=== PATIENT | male | born 1945 | race Caucasian/White ===

== ENCOUNTER 2017-05-31 09:22 | Inpatient (IN) | payer OTHER ==
[~2017-05-31] VITALS: Ht 177.8 cm; Wt 122.2 kg
[2017-05-31] MEDS ORDERED: LABETALOL 5MG/ML, 20ML ONE (09:53)
[2017-05-31] MEDS ORDERED: SODIUM CHLORIDE FLUSH 10ML SYR IVF ONE (10:00)
[2017-05-31] MEDS ORDERED: SODIUM CHLORIDE 0.9% 1,000ML IVBOLUS ONE (10:00)
[2017-05-31] MEDS ORDERED: LABETALOL 5MG/ML, 20ML IVPush ONE (10:00)
[2017-05-31 10:07] LABS: HEMATOCRIT 45.2 % (39.2-51.8); HEMOGLOBIN 15.6 g/dL (13.7-18.0); WHITE BLOOD COUNT 6.5 x10^3/uL (3.4-10)
[2017-05-31 10:21] LABS: ASPARTATE AMINO TRANSFERASE 23 U/L (15-37); BLOOD UREA NITROGEN 20 mg/dL (7-18)
[2017-05-31 10:30] LABS: IS PT STATUS REG ER OR PRE ER? YES
[2017-05-31] MEDS ORDERED: SODIUM CHLORIDE FLUSH 10ML SYR IVF PRN (11:30)
[2017-05-31] MEDS ORDERED: PROMETHAZINE 25 MG/ML, 1ML IM PRN (13:00)
[2017-05-31] MEDS ORDERED: NITROGLYCERIN 0.4 MG/SPRAY SL PRN (13:00)
[2017-05-31] MEDS ORDERED: LABETALOL 5MG/ML, 20ML IVPush PRN (13:00)
[2017-05-31] MEDS ORDERED: ACETAMINOPHEN 325 MG TABLET PO PRN (13:00)
[2017-05-31] MEDS ORDERED: NITROGLYCERIN 0.4 MG BOTTLE (25 TABS) SL PRN (13:00)
[2017-05-31] MEDS ORDERED: morphine SULFATE 10 MG/ML, 1ML IVPush PRN (13:00)
[2017-05-31] MEDS ORDERED: ONDANSETRON 2MG/ML, 2ML IVPush PRN (13:00)
[2017-05-31] MEDS ORDERED: METOCLOPRAMIDE 5 MG/ML, 2ML IVPush PRN (13:00)
[2017-05-31 13:11] LABS: IS PT STATUS REG ER OR PRE ER? NO
[2017-05-31 13:19] VITALS: BP 168/99
[2017-05-31] MEDS: ENOXAPARIN 40 MG/0.4 ML SQ SCH (16:02)
[2017-05-31] MEDS ORDERED: PNEUMOCOCCAL 23 VACCINE IM-VACC ONE (16:30)
[2017-05-31] MEDS: METOPROLOL TARTRATE 25 MG TABLET PO SCH (18:47)
[2017-05-31 18:48] LABS: IS PT STATUS REG ER OR PRE ER? NO
[2017-05-31 19:07] VITALS: BP 152/71
[2017-05-31] MEDS: ATORVASTATIN 40 MG TABLET PO SCH (21:35)
[2017-06-01 01:21] VITALS: BP 134/69
[2017-06-01 01:23] LABS: IS PT STATUS REG ER OR PRE ER? NO
[2017-06-01 05:41] LABS: HEMATOCRIT 41.4 % (39.2-51.8); HEMOGLOBIN 14.2 g/dL (13.7-18.0); WHITE BLOOD COUNT 6.6 x10^3/uL (3.4-10)
[2017-06-01] MEDS: METOPROLOL TARTRATE 25 MG TABLET PO SCH ×2 (06:36→17:49)
[2017-06-01] MEDS: ASPIRIN 81 MG TABLET EC PO SCH (06:36)
[2017-06-01 06:42] LABS: ASPARTATE AMINO TRANSFERASE 20 U/L (15-37); BLOOD UREA NITROGEN 25 mg/dL (7-18)
[2017-06-01] MEDS ORDERED: ASPIRIN 325 MG TABLET PO SCH (09:00)
[2017-06-01 10:02] VITALS: BP 135/71
[2017-06-01] MEDS ORDERED: REGADENOSON 0.4 MG/5 ML SYRINGE ONE (10:44)
[2017-06-01 13:06] VITALS: BP 173/74
[2017-06-01] MEDS: LISINOPRIL 10 MG TABLET PO SCH (13:11)
[2017-06-01] MEDS: ENOXAPARIN 40 MG/0.4 ML SQ SCH (13:12)
[2017-06-01 15:05] VITALS: BP_SYST 158; BP_DIAS 80; BP_DIAS 90
[2017-06-01] MEDS: ATORVASTATIN 40 MG TABLET PO SCH (20:10)
[2017-06-01 20:35] VITALS: BP 153/74
[2017-06-02 02:45] VITALS: BP 141/75
[2017-06-02] MEDS: ASPIRIN 81 MG TABLET EC PO SCH (06:28)
[2017-06-02] MEDS: METOPROLOL TARTRATE 25 MG TABLET PO SCH (06:29)
[2017-06-02 08:19] VITALS: BP 144/73
[2017-06-02] MEDS: LISINOPRIL 10 MG TABLET PO SCH (08:21)
[2017-06-02] MEDS: ENOXAPARIN 40 MG/0.4 ML SQ SCH (13:00)
[2017-06-02] MEDS ORDERED: ASPI-621 PO (14:55)
[2017-06-02] MEDS ORDERED: ATOR40TA78 PO (14:55)
[2017-06-02] MEDS ORDERED: NITR0.4T SL (14:55)
[2017-06-02] MEDS ORDERED: LISI-167 PO (14:55)
[2017-06-02] MEDS ORDERED: CARV6.2512 PO (14:55)
[2017-06-02] MEDS ORDERED: CARVEDILOL 6.25 MG TABLET PO SCH (18:00)
== END 2017-06-02 16:46 | disposition home or self-care (01) | DRG 293 ==
LOC: ED 10:16 → EDIP 11:21 → 5SO 12:54 → DCLOUNGE 06-02 16:20
PROVIDERS: ADMIT Internal Medicine; ATTEND Internal Medicine
DX: I11.0 Hypertensive heart disease with heart failure (principal); I34.0 Nonrheumatic mitral (valve) insufficiency; I44.7 Left bundle-branch block, unspecified; E78.5 Hyperlipidemia, unspecified; I16.0 Hypertensive urgency; I50.32 Chronic diastolic (congestive) heart failure; I25.110 Atherosclerotic heart disease of native coronary artery with unstable angina pectoris; E66.9 Obesity, unspecified; Z68.38 Body mass index [BMI] 38.0-38.9, adult; I25.2 Old myocardial infarction; Z79.82 Long term (current) use of aspirin; Z79.899 Other long term (current) drug therapy; Z87.891 Personal history of nicotine dependence; Z91.14 Patient's other noncompliance with medication regimen; Z91.19 Patient's noncompliance with other medical treatment and regimen; Z95.5 Presence of coronary angioplasty implant and graft; R73.9 Hyperglycemia, unspecified
CPT/HCPCS: 36415; 71010; 78452; 80053; 80061; 83690; 84443; 84484; 85025; 85610; 85730; 90732; 93005; 93017; 93306; J1650; J2785; A9502; C9898; J7030

== ENCOUNTER 2018-03-02 14:24 | Inpatient (IN) | payer OTHER ==
[~2018-03-02] VITALS: Ht 175.3 cm; Wt 117.0 kg
[~2018-03-02 14:24] MED LIST: ASPI-621 PO; ATOR40TA78 PO; CARV6.2512 PO; LISI-167 PO; NITR0.4T SL
[2018-03-02] MEDS ORDERED: ASPIRIN 81 MG TABLET CHEW ONE (15:00)
[2018-03-02 15:26] LABS: MEAN CORPUSCULAR HEMOGLOBIN 30.9 pg (27.5-34.5); MEAN CORPUSCULAR HGB CONC 34.4 g/dL (33.2-36.2); MEAN CORPUSCULAR VOLUME 89.8 fL (81-97); MEAN PLATELET VOLUME 7.5 fL (7.4-10.4); PLATELET COUNT 221 x10^3/uL (130-400); RED BLOOD COUNT 4.61 x10^6/uL (4.38-5.82); RED CELL DISTRIBUTION WIDTH 14.1 % (9.4-14.8)
[2018-03-02 15:30] LABS: INTERNATIONAL NORMALIZED RATIO 0.98 (0.93-1.1); PROTHROMBIN TIME 10.1 Seconds (9.6-11.5)
[2018-03-02] MEDS ORDERED: SODIUM CHLORIDE FLUSH 10ML SYR IVF ONE (15:30)
[2018-03-02] MEDS ORDERED: ASPIRIN 81 MG TABLET CHEW PO ONE (15:30)
[2018-03-02 15:32] LABS: ALANINE AMINOTRANSFERASE 33 U/L (12-78); ALBUMIN 3.9 g/dL (3.4-5.0); ANION GAP 5 mmol/L (5-15); CHLORIDE 107 mmol/L (98-107); CREATININE 1.75 mg/dL (0.7-1.3)
[2018-03-02 15:35] LABS: ALKALINE PHOSPHATASE 80 U/L (45-117); BILIRUBIN,TOTAL 0.6 mg/dL (0.2-1.0); TOTAL PROTEIN 7.5 g/dL (6.4-8.2); TROPONIN I < 0.015 ng/mL (0.000-0.045)
[2018-03-02 15:45] LABS: MD NO
[2018-03-02 15:53] LABS: BASOPHILS # (AUTO) 0.01 x10^3/uL (0-0.1); BASOPHILS % (AUTO) 0 % (0-1); EOSINOPHILS # (AUTO) 0.23 x10^3/uL (0-0.4); EOSINOPHILS % (AUTO) 4 % (1-7); LYMPHOCYTES # (AUTO) 1.16 x10^3/uL (1-3.4); LYMPHOCYTES % (AUTO) 18 % (22-44); MONOCYTES # (AUTO) 0.77 x10^3/uL (0.2-0.8); MONOCYTES % (AUTO) 12 % (2-9); NEUTROPHILS # (AUTO) 4.29 x10^3/uL (1.8-6.8); NEUTROPHILS % (AUTO) 66 % (42-75)
[2018-03-02] MEDS ORDERED: VERAPAMIL 2.5 MG/ML, 2ML ONE (16:09)
[2018-03-02] MEDS ORDERED: FENTANYL PF 100 MCG/2ML ONE (16:09)
[2018-03-02] MEDS ORDERED: MIDAZOLAM 1 MG/ML, 5ML ONE (16:09)
[2018-03-02] MEDS ORDERED: TICAGRELOR 90 MG TABLET ONE (16:09)
[2018-03-02] MEDS ORDERED: HEPARIN 1,000 UNITS/ML, 10ML ONE (16:10)
[2018-03-02] MEDS ORDERED: LIDOCAINE-MPF 2% ,5ML ONE (16:10)
[2018-03-02] MEDS ORDERED: BIVALIRUDIN 250 MG ONE (16:10)
[2018-03-02] MEDS ORDERED: NITROGLYCERIN 0.4 MG/SPRAY SL PRN (17:00)
[2018-03-02] MEDS ORDERED: ONDANSETRON ODT 4 MG PO PRN (17:00)
[2018-03-02] MEDS ORDERED: ACETAMINOPHEN 325 MG TABLET PO PRN (17:00)
[2018-03-02] MEDS ORDERED: DOCUSATE 100 MG CAPSULE PO PRN (17:00)
[2018-03-02] MEDS ORDERED: NITROGLYCERIN 0.4 MG BOTTLE (25 TABS) SL PRN ×2 (17:00→17:30)
[2018-03-02] MEDS ORDERED: ONDANSETRON 2MG/ML, 2ML IVPush PRN (17:00)
[2018-03-02] MEDS ORDERED: morphine SULFATE 10 MG/ML, 1ML IVPush PRN (17:00)
[2018-03-02] MEDS ORDERED: PHARMACY MAY ADJ FOR RENAL FX MC PRN (17:00)
[2018-03-02] MEDS: SODIUM CHLORIDE 0.9% 1,000 ML IV SCH ×2 (17:20→17:49)
[2018-03-02] MEDS: HEPARIN 5,000 UNITS/ML, 1ML SQ SCH (17:51)
[2018-03-02] MEDS: CARVEDILOL 6.25 MG TABLET PO SCH (17:51)
[2018-03-02 19:30] VITALS: BP 205/76
[2018-03-02] MEDS: LISINOPRIL 20 MG TABLET PO SCH (20:18)
[2018-03-02] MEDS ORDERED: ATORVASTATIN 40 MG TABLET PO SCH (21:00)
[2018-03-02 21:50] LABS: HEMOGLOBIN A1C 6.1 % (4.2-6.3)
[2018-03-03 00:29] VITALS: BP 172/75
[2018-03-03] MEDS: SODIUM CHLORIDE 0.9% 1,000 ML IV SCH ×2 (01:08→07:45)
[2018-03-03] MEDS: HEPARIN 5,000 UNITS/ML, 1ML SQ SCH (05:27)
[2018-03-03] MEDS: CARVEDILOL 6.25 MG TABLET PO SCH (05:27)
[2018-03-03 05:37] LABS: BASOPHILS # (AUTO) 0.02 x10^3/uL (0-0.1); BASOPHILS % (AUTO) 0 % (0-1); EOSINOPHILS # (AUTO) 0.19 x10^3/uL (0-0.4); EOSINOPHILS % (AUTO) 3 % (1-7); LYMPHOCYTES # (AUTO) 1.23 x10^3/uL (1-3.4); LYMPHOCYTES % (AUTO) 21 % (22-44); MD NO; MEAN CORPUSCULAR HEMOGLOBIN 30.4 pg (27.5-34.5); MEAN CORPUSCULAR HGB CONC 33.8 g/dL (33.2-36.2); MEAN CORPUSCULAR VOLUME 89.9 fL (81-97); MEAN PLATELET VOLUME 7.6 fL (7.4-10.4); MONOCYTES # (AUTO) 0.62 x10^3/uL (0.2-0.8); MONOCYTES % (AUTO) 10 % (2-9); NEUTROPHILS # (AUTO) 3.87 x10^3/uL (1.8-6.8); NEUTROPHILS % (AUTO) 65 % (42-75); PLATELET COUNT 165 x10^3/uL (130-400); RED BLOOD COUNT 4.35 x10^6/uL (4.38-5.82); RED CELL DISTRIBUTION WIDTH 13.7 % (9.4-14.8)
[2018-03-03 05:41] LABS: ALBUMIN 3.4 g/dL (3.4-5.0); ANION GAP 6 mmol/L (5-15); CALCIUM 8.9 mg/dL (8.5-10.1); CHLORIDE 111 mmol/L (98-107)
[2018-03-03 05:45] LABS: CHOL/HDL RATIO 4.8; CHOLESTEROL, TOTAL 125 mg/dL (140-239); CREATININE 1.59 mg/dL (0.7-1.3); HDL CHOL % 21 % (26-37); HDL CHOLESTEROL (DIRECT) 26 mg/dL (40-60); LDL CHOLESTEROL,CALCULATED 54 mg/dL (54-169); LDL/HDL RATIO 2.1 (0.5-3.0); TRIGLYCERIDES 227 mg/dL (50-200); VLDL CHOLESTEROL 45 mg/dL (0-25)
[2018-03-03 05:45] LABS: MICROSCOPIC NOT IND
[2018-03-03 05:47] LABS: CULTURE INDICATED? NO
[2018-03-03] MEDS ORDERED: ASPIRIN 81 MG TABLET EC PO SCH (06:00)
[2018-03-03 07:10] VITALS: BP 126/68
[2018-03-03] MEDS: LISINOPRIL 20 MG TABLET PO SCH (07:46)
[2018-03-03] MEDS ORDERED: LISINOPRIL 10 MG TABLET PO SCH (09:00)
[2018-03-03] MEDS ORDERED: CLOPIDOGREL 75 MG TABLET PO SCH (09:00)
[2018-03-03] MEDS ORDERED: CLOP75TA PO (09:02)
[2018-03-03] MEDS ORDERED: LISI-170 PO (09:02)
[2018-03-03 13:00] VITALS: BP 129/66
== END 2018-03-03 14:04 | disposition home or self-care (01) | DRG 246 ==
LOC: ED 15:59 → EDIP 16:47 → 5SO 17:08
PROVIDERS: ADMIT Hospitalist; ATTEND Hospitalist
PROC: 027034Z Dilation of Coronary Artery, One Artery with Drug-eluting Intraluminal Device, Percutaneous Approach (ICD-10-PCS; principal; 2018-03-02)
PROC: 4A023N7 Measurement of Cardiac Sampling and Pressure, Left Heart, Percutaneous Approach (ICD-10-PCS; 2018-03-02)
PROC: B2111ZZ Fluoroscopy of Multiple Coronary Arteries using Low Osmolar Contrast (ICD-10-PCS; 2018-03-02)
PROC: B2151ZZ Fluoroscopy of Left Heart using Low Osmolar Contrast (ICD-10-PCS; 2018-03-02)
DX: I25.110 Atherosclerotic heart disease of native coronary artery with unstable angina pectoris (principal); N17.0 Acute kidney failure with tubular necrosis; I50.32 Chronic diastolic (congestive) heart failure; E66.9 Obesity, unspecified; N28.9 Disorder of kidney and ureter, unspecified; R73.9 Hyperglycemia, unspecified; E78.5 Hyperlipidemia, unspecified; I11.0 Hypertensive heart disease with heart failure; I25.2 Old myocardial infarction; Z68.38 Body mass index [BMI] 38.0-38.9, adult; Z79.82 Long term (current) use of aspirin; Z87.891 Personal history of nicotine dependence; Z95.5 Presence of coronary angioplasty implant and graft
CPT/HCPCS: 36415; 71045; 80048; 80053; 80061; 81003; 82040; 83036; 84484; 85025; 85610; 85730; 93005; 93306; 93454; 99156; 99157; 99285; C1769; C1894; C9600; J0583; J1644; J2250; J3010; J3490; C1725; C1874; C1887; J7030; Q9967

== ENCOUNTER 2018-10-01 09:54 | Inpatient (IN) | payer MEDICAID, OTHER ==
[~2018-10-01] VITALS: Ht 177.8 cm; Wt 128.2 kg
[~2018-10-01 09:54] MED LIST changes: -ASPI-621 PO; +ASPI81TA45 PO; +CLOP75TA PO; +LISI-170 PO
[2018-10-01] MEDS ORDERED: NITROGLYCERIN SINGLE TAB 0.4 MG SL ONE (10:30)
[2018-10-01] MEDS ORDERED: ASPIRIN 81 MG TABLET CHEW PO ONE (10:30)
[2018-10-01] MEDS ORDERED: NITROGLYCERIN SINGLE TAB 0.4 MG SL PRN (10:30)
--- NOTE | 2018-10-01 10:30 | NUR ---
XRAY AT BEDSIDE.
[2018-10-01] MEDS ORDERED: ASPIRIN 81 MG TABLET EC ONE (10:31)
[2018-10-01] MEDS ORDERED: ASPIRIN 81 MG TABLET CHEW ONE (10:41)
--- NOTE | 2018-10-01 10:42 | NUR ---
PATIENT PRESENTS TO ED TODAY FOR CP AND SOB STARTING , WORSENING YESTERDAY. IV ESTABLISHED, LABS DRAWN FROM IV START, MEDICATIONS ADMINISTERED PER NOV, MACHINE SHORTHAND REPORTER ON PATIENT, HX MS IN 2006 AND CARDIAC STENTS X 7. NADN. AWAITING RESULTS, CALL LIGHT WITHIN REACH.
[2018-10-01 10:45] LABS: BASOPHILS # (AUTO) 0.01 x10^3/uL (0-0.1); BASOPHILS % (AUTO) 0 % (0-1); EOSINOPHILS # (AUTO) 0.14 x10^3/uL (0-0.4); EOSINOPHILS % (AUTO) 3 % (1-7); LYMPHOCYTES # (AUTO) 0.91 x10^3/uL (1-3.4); LYMPHOCYTES % (AUTO) 18 % (22-44); MD NO; MEAN CORPUSCULAR HEMOGLOBIN 31.3 pg (27.5-34.5); MEAN CORPUSCULAR HGB CONC 34.1 g/dL (33.2-36.2); MEAN CORPUSCULAR VOLUME 91.8 fL (81-97); MEAN PLATELET VOLUME 7.4 fL (7.4-10.4); MONOCYTES # (AUTO) 0.47 x10^3/uL (0.2-0.8); MONOCYTES % (AUTO) 9 % (2-9); NEUTROPHILS # (AUTO) 3.63 x10^3/uL (1.8-6.8); NEUTROPHILS % (AUTO) 70 % (42-75); PLATELET COUNT 190 x10^3/uL (130-400); RED BLOOD COUNT 4.45 x10^6/uL (4.38-5.82); RED CELL DISTRIBUTION WIDTH 13.7 % (9.4-14.8)
[2018-10-01] MEDS ORDERED: CARV-39 PO (10:47)
[2018-10-01] MEDS ORDERED: ISOS5TAB2 PO (10:48)
[2018-10-01] MEDS ORDERED: MULT-115 PO (10:49)
[2018-10-01 10:56] LABS: ALANINE AMINOTRANSFERASE 29 U/L (12-78); ALBUMIN 3.7 g/dL (3.4-5.0); ANION GAP 8 mmol/L (5-15); CALCIUM 8.6 mg/dL (8.5-10.1); CHLORIDE 109 mmol/L (98-107); CREATININE 1.49 mg/dL (0.7-1.3)
[2018-10-01 11:01] LABS: ALKALINE PHOSPHATASE 80 U/L (45-117); BILIRUBIN,TOTAL 0.8 mg/dL (0.2-1.0); TOTAL PROTEIN 6.9 g/dL (6.4-8.2); TROPONIN I 0.029 ng/mL (0.000-0.045)
[2018-10-01 11:03] LABS: INTERNATIONAL NORMALIZED RATIO 1.01 (0.93-1.1); PROTHROMBIN TIME 10.7 Seconds (9.6-11.5)
--- NOTE | 2018-10-01 11:06 | NUR ---
RESULTS BACK, PATIENT TBADM. AWAITING ADMIT ORDER, PATIENT RESTING COMFORTABLY IN [facility].
--- NOTE | 2018-10-01 11:55 | NUR ---
REPORT TO GERSON CONDE.
--- NOTE | 2018-10-01 11:57 | NUR ---
REPORT TO GERSON ORTA. Addendum: 10/01/18 at 1157 by [facility] AWAITING TRANSPORT.
[2018-10-01 12:22] VITALS: BP 158/72
[2018-10-01] MEDS ORDERED: ONDANSETRON ODT 4 MG PO PRN (13:00)
[2018-10-01] MEDS ORDERED: NITROGLYCERIN 0.4 MG/SPRAY SL PRN (13:00)
[2018-10-01] MEDS ORDERED: LABETALOL 5MG/ML, 20ML IVPush PRN (13:00)
[2018-10-01] MEDS ORDERED: ONDANSETRON 2MG/ML, 2ML IVPush PRN (13:00)
[2018-10-01] MEDS ORDERED: hydrALAzine 20 MG/ML, 1ML IVPush PRN (13:00)
[2018-10-01] MEDS ORDERED: NITROGLYCERIN 0.4 MG BOTTLE (25 TABS) SL PRN (13:00)
[2018-10-01] MEDS ORDERED: ACETAMINOPHEN 325 MG TABLET PO PRN (13:00)
[2018-10-01] MEDS ORDERED: ISOSORBIDE DINITRATE MC SCH (13:30)
[2018-10-01 13:34] LABS: TROPONIN I 0.029 ng/mL (0.000-0.045)
[2018-10-01] MEDS ORDERED: SODIUM CHLORIDE 0.9% 1,000 ML IV ONE (14:14)
[2018-10-01] MEDS ORDERED: TICAGRELOR 90 MG TABLET ONE (15:25)
[2018-10-01] MEDS ORDERED: VERAPAMIL 2.5 MG/ML, 2ML ONE (15:25)
[2018-10-01] MEDS ORDERED: FENTANYL PF 100 MCG/2ML ONE ×2 (15:25→16:16)
[2018-10-01] MEDS ORDERED: MIDAZOLAM 1 MG/ML, 5ML ONE (15:25)
[2018-10-01] MEDS ORDERED: BIVALIRUDIN 250 MG ONE (15:25)
[2018-10-01] MEDS ORDERED: HEPARIN 1,000 UNITS/ML, 10ML ONE (15:26)
[2018-10-01] MEDS ORDERED: LIDOCAINE-MPF 1%, 5ML ONE (15:26)
[2018-10-01] MEDS: HEPARIN 5,000 UNITS/ML, 1ML SQ SCH ×2 (15:35→20:30)
[2018-10-01] MEDS ORDERED: ENALAPRILAT 1.25 MG/ML, 2ML ONE (16:21)
[2018-10-01] MEDS ORDERED: hydrALAzine 20 MG/ML, 1ML ONE (16:21)
[2018-10-01] MEDS: SODIUM CHLORIDE 0.9% 1,000 ML IV SCH ×2 (17:33→22:48)
[2018-10-01 19:32] LABS: TROPONIN I 0.062 ng/mL (0.000-0.045)
[2018-10-01 20:25] VITALS: BP 191/92
[2018-10-01] MEDS: TICAGRELOR 90 MG TABLET PO SCH (20:29)
[2018-10-01] MEDS: LISINOPRIL 20 MG TABLET PO SCH (20:29)
[2018-10-01] MEDS: ATORVASTATIN 40 MG TABLET PO SCH (20:29)
[2018-10-02 01:06] VITALS: BP 154/81
[2018-10-02] MEDS: ASPIRIN 81 MG TABLET EC PO SCH (05:18)
[2018-10-02] MEDS: HEPARIN 5,000 UNITS/ML, 1ML SQ SCH (05:19)
[2018-10-02 07:42] VITALS: BP 170/75
[2018-10-02] MEDS: CARVEDILOL 25 MG TABLET PO SCH (08:40)
[2018-10-02] MEDS: ISOSORBIDE DINITRATE 30 MG TABLET PO SCH (08:40)
[2018-10-02] MEDS: TICAGRELOR 90 MG TABLET PO SCH ×2 (08:40→19:46)
[2018-10-02] MEDS: MULTIVITAMIN 1 TABLET PO SCH (08:40)
[2018-10-02] MEDS: LISINOPRIL 20 MG TABLET PO SCH ×2 (08:41→19:46)
[2018-10-02] MEDS ORDERED: CLOPIDOGREL 75 MG TABLET PO SCH (09:00)
[2018-10-02] MEDS ORDERED: ASPIRIN 81 MG TABLET EC PO SCH (09:00)
[2018-10-02] MEDS ORDERED: ISOSORBIDE DINITRATE 10 MG TABLET PO SCH (09:00)
[2018-10-02] MEDS ORDERED: ISOSORBIDE DINITRATE 20 MG TABLET PO SCH (09:00)
[2018-10-02] MEDS ORDERED: FUROSEMIDE 40 MG/4 ML IV ONE (11:00)
[2018-10-02 11:17] VITALS: BP 115/65
[2018-10-02] MEDS ORDERED: MELATONIN 5 MG TABLET PO PRN (12:00)
[2018-10-02 13:13] VITALS: BP 127/67
[2018-10-02] MEDS ORDERED: DIPHENHYDRAMINE 25 MG CAPSULE PO PRN (17:00)
[2018-10-02 19:38] VITALS: BP 176/73
[2018-10-02 19:39] VITALS: BP 148/73
[2018-10-02] MEDS: ATORVASTATIN 40 MG TABLET PO SCH (19:46)
[2018-10-03 05:54] VITALS: BP 152/68
[2018-10-03] MEDS: ASPIRIN 81 MG TABLET EC PO SCH (06:43)
[2018-10-03] MEDS: LISINOPRIL 20 MG TABLET PO SCH (08:58)
[2018-10-03] MEDS: ISOSORBIDE DINITRATE 30 MG TABLET PO SCH (08:58)
[2018-10-03] MEDS: TICAGRELOR 90 MG TABLET PO SCH (08:58)
[2018-10-03] MEDS: MULTIVITAMIN 1 TABLET PO SCH (08:58)
[2018-10-03] MEDS: CARVEDILOL 25 MG TABLET PO SCH (08:58)
[2018-10-03 09:00] VITALS: BP 145/67
[2018-10-03] MEDS ORDERED: ISOS30TA21 PO (12:37)
[2018-10-03] MEDS ORDERED: TICA90TA PO (12:37)
== END 2018-10-03 14:15 | disposition home or self-care (01) | DRG 247 ==
LOC: ED 11:18 → EDIP 11:24 → OBSVTOIN 11:24 → INTOOBSV 11:24 → 5SO 12:07 → DCLOUNGE 10-03 13:51
PROVIDERS: ADMIT Hospitalist; ATTEND Hospitalist
PROC: 027135Z Dilation of Coronary Artery, Two Arteries with Two Drug-eluting Intraluminal Devices, Percutaneous Approach (ICD-10-PCS; principal; 2018-10-01)
PROC: 4A023N7 Measurement of Cardiac Sampling and Pressure, Left Heart, Percutaneous Approach (ICD-10-PCS; 2018-10-01)
PROC: B2111ZZ Fluoroscopy of Multiple Coronary Arteries using Low Osmolar Contrast (ICD-10-PCS; 2018-10-01)
PROC: B2151ZZ Fluoroscopy of Left Heart using Low Osmolar Contrast (ICD-10-PCS; 2018-10-01)
DX: T82.855A Stenosis of coronary artery stent, initial encounter (principal); I13.0 Hypertensive heart and chronic kidney disease with heart failure and stage 1 through stage 4 chronic kidney disease, or unspecified chronic kidney disease; I25.110 Atherosclerotic heart disease of native coronary artery with unstable angina pectoris; E78.5 Hyperlipidemia, unspecified; I34.0 Nonrheumatic mitral (valve) insufficiency; I50.9 Heart failure, unspecified; N18.9 Chronic kidney disease, unspecified; R04.0 Epistaxis; Y83.1 Surgical operation with implant of artificial internal device as the cause of abnormal reaction of the patient, or of later complication, without mention of misadventure at the time of the procedure; R73.9 Hyperglycemia, unspecified; Z79.82 Long term (current) use of aspirin; I25.2 Old myocardial infarction; Z87.891 Personal history of nicotine dependence; Z79.899 Other long term (current) drug therapy; Y92.89 Other specified places as the place of occurrence of the external cause
CPT/HCPCS: 36415; 93458; 99285; C9600; C9602; 71045; 80053; 83735; 83880; 84100; 84484; 85025; 85610; 85730; 93005; 93306; 99156; 99157; C1769; C1894; G0378; J0583; J1644; J1940; J2250; J2405; J3010; C1725; C1874; C1887; J0360; J7030; Q0163; Q9967

== ENCOUNTER 2019-10-15 08:10 | Inpatient (IN) | payer MEDICAID, OTHER ==
[~2019-10-15] VITALS: Ht 177.8 cm; Wt 118.6 kg
[~2019-10-15 08:10] MED LIST changes: +CARV-39 PO; +CARV25TA12 PO; +CLOP75TA52 PO; +HYDR-3342 PO; +ISOS30TA21 PO; +ISOS5TAB2 PO; +MULT-115 PO; -NITR0.4T SL; +NITR0.4T41 SL; +OMEP-110 PO; +TICA90TA PO
--- NOTE | 2019-10-15 08:27 | NUR ---
DONIS. REPORT RECEIVED FROM EMS. PT C/O ABD PAIN/CP/DZY/WEAKNESS SINCE 2 AM. 1 EPISODE OF BLOODY EMESIS FIELD MARKETING LEAD. HX OF BLOOD IN STOOL/PR WITH STENTS. PT'S AOX4. RESPS EVEN AND UNLABORED. 4MG ZOFRAN GIVEN FIELD MARKETING LEAD BY EMS. ALL MONITORS IN PLACE. CALL LIGHT WITHIN REACH. EKG DONE AT BEDSIDE BY EMT AT THIS TIME.
--- NOTE | 2019-10-15 08:45 | NUR ---
NS BOLUS INFUSING AT THIS TIME. PT TOLERATED WELL. LAB AT BEDSIDE.
--- NOTE | 2019-10-15 08:51 | NUR ---
MEDICATIONS ORDERED FROM PHARMACY AT THIS TIME.
[2019-10-15] MEDS ORDERED: PANTOPRAZOLE 80 MG in SODIUM CHLORIDE 0.9% 50 ML IVPB ONE (09:00)
[2019-10-15] MEDS ORDERED: SODIUM CHLORIDE 0.9% 1,000ML IVBOLUS ONE (09:00)
[2019-10-15 09:03] LABS: BASOPHILS # (AUTO) 0.02 x10^3/uL (0-0.1); BASOPHILS % (AUTO) 0 % (0-1); EOSINOPHILS # (AUTO) 0.05 x10^3/uL (0-0.4); EOSINOPHILS % (AUTO) 1 % (1-7); LYMPHOCYTES # (AUTO) 0.89 x10^3/uL (1-3.4); LYMPHOCYTES % (AUTO) 13 % (22-44); MD NO; MEAN CORPUSCULAR HEMOGLOBIN 26.6 pg (27.5-34.5); MEAN CORPUSCULAR HGB CONC 32.5 g/dL (33.2-36.2); MEAN PLATELET VOLUME 7.5 fL (7.4-10.4); MONOCYTES # (AUTO) 0.41 x10^3/uL (0.2-0.8); MONOCYTES % (AUTO) 6 % (2-9); NEUTROPHILS # (AUTO) 5.43 x10^3/uL (1.8-6.8); NEUTROPHILS % (AUTO) 80 % (42-75); PLATELET COUNT 235 x10^3/uL (130-400); RED BLOOD COUNT 3.21 x10^6/uL (4.38-5.82); RED CELL DISTRIBUTION WIDTH 16.6 % (9.4-14.8)
[2019-10-15] MEDS ORDERED: ASPI-496 PO (09:05)
[2019-10-15] MEDS ORDERED: CLOP75TA52 PO (09:06)
[2019-10-15] MEDS ORDERED: HYDR25TA6 PO (09:06)
[2019-10-15 09:12] LABS: ALANINE AMINOTRANSFERASE 18 U/L (12-78); ALBUMIN 2.9 g/dL (3.4-5.0); ANION GAP 4 mmol/L (5-15); CALCIUM 8.1 mg/dL (8.5-10.1); CHLORIDE 112 mmol/L (98-107); CREATININE 1.52 mg/dL (0.7-1.3)
[2019-10-15 09:16] LABS: ALKALINE PHOSPHATASE 58 U/L (45-117); BILIRUBIN,TOTAL 0.6 mg/dL (0.2-1.0); TOTAL PROTEIN 5.8 g/dL (6.4-8.2); TROPONIN I < 0.015 ng/mL (0.000-0.045)
--- NOTE | 2019-10-15 09:25 | NUR ---
PT MEDICATED PER EMAR. PT TOLERATED WELL. PT'S AOX4. RESPS EVEN AND UNLABORED.
[2019-10-15] MEDS ORDERED: SODIUM CHLORIDE FLUSH 10ML SYR IVF ONE ×2 (09:30→10:00)
[2019-10-15] MEDS: PANTOPRAZOLE 80 MG in SODIUM CHLORIDE 0.9% 100 ML IV SCH ×2 (09:48→17:59)
--- NOTE | 2019-10-15 09:51 | NUR ---
2ND PROTONIX INFUSING AT THIS TIME. PT TOLERATED WELL.
[2019-10-15] MEDS ORDERED: SODIUM CHLORIDE 0.9% 1,000 ML IV ONE (10:16)
[2019-10-15] MEDS ORDERED: SODIUM CHLORIDE FLUSH 10ML SYR IVF PRN (10:30)
[2019-10-15 10:31] LABS: INTERNATIONAL NORMALIZED RATIO 1.04 (0.93-1.1)
--- NOTE | 2019-10-15 11:00 | NUR ---
NS AND 2ND PROTONIX INFUSING AT THE SAME TIME AT THIS TIME. PT TOLERATED WELL.
--- NOTE | 2019-10-15 11:04 | NUR ---
MOUTH SWAB GIVEN PER PT'S REQUEST.
[2019-10-15] MEDS ORDERED: FENTANYL PF 100 MCG/2ML ONE (11:16)
[2019-10-15] MEDS ORDERED: MIDAZOLAM 1 MG/ML, 5ML ONE (11:17)
--- NOTE | 2019-10-15 11:43 | NUR ---
GI AT BEDSIDE AT THIS TIME.
--- NOTE | 2019-10-15 12:03 | NUR ---
PROCEDURE DONE. PT WAS GIVEN 4 VERSED/100 FENTANYL DURING PROCEDURE. PAPERWORK AT BEDSIDE. PT SLEEPING. VSS. ALL MONITORS IN PLACE. CALL LIGHT WITHIN REACH.
--- NOTE | 2019-10-15 12:26 | NUR ---
PT'S AOX4. RESPS EVEN AND UNLABORED. ALL MONITORS IN PLACE. CALL LIGHT WITHIN REACH. PT DENIES ANY NEEDS OR CONCERNS AT THIS TIME.
--- NOTE | 2019-10-15 13:35 | NUR ---
REPORT GIVEN TO CHARLEY NIETO. ALL QUESTIONS ANSWERED.
[2019-10-15 14:36] VITALS: BP 177/65
[2019-10-15] MEDS ORDERED: OXYcodone IR 5MG TABLET PO PRN (15:00)
[2019-10-15] MEDS ORDERED: morphine SULFATE 10 MG/ML, 1ML IVPush PRN (15:00)
[2019-10-15] MEDS ORDERED: DOCUSATE 100 MG CAPSULE PO PRN (15:00)
[2019-10-15] MEDS ORDERED: hydrALAzine 20 MG/ML, 1ML IVPush PRN (15:00)
[2019-10-15] MEDS ORDERED: ACETAMINOPHEN 325 MG TABLET PO PRN (15:00)
[2019-10-15] MEDS: SODIUM CHLORIDE 0.9% 1,000 ML IV SCH (15:03)
[2019-10-15] MEDS: ISOSORBIDE DINITRATE 30 MG TABLET PO SCH (15:03)
[2019-10-15] MEDS: IRON SUCROSE COMPLEX 100MG/5ML IV SCH (15:03)
[2019-10-15 15:46] LABS: FREE T4 (FREE THYROXINE) 0.9 ng/dL (0.76-1.46)
[2019-10-15 19:29] VITALS: BP 125/61
[2019-10-15 19:47] LABS: O2 FLOW ROOM AIR L/min
[2019-10-15] MEDS: CARVEDILOL 25 MG TABLET PO SCH (21:12)
[2019-10-15] MEDS: ONDANSETRON ODT 4 MG PO PRN (21:12)
[2019-10-15] MEDS: ATORVASTATIN 40 MG TABLET PO SCH (21:12)
[2019-10-16] VITALS (9 sets, daily range): BP systolic 127–169; BP diastolic 61–73
[2019-10-16] MEDS: SODIUM CHLORIDE 0.9% 1,000 ML IV SCH (00:50)
[2019-10-16] MEDS ORDERED: NITROGLYCERIN OINT 2%, 1GM TP ONE (03:30)
[2019-10-16] MEDS: ONDANSETRON ODT 4 MG PO PRN (03:38)
[2019-10-16 03:50] LABS: TROPONIN I < 0.015 ng/mL (0.000-0.045)
[2019-10-16 03:51] LABS: ALANINE AMINOTRANSFERASE 15 U/L (12-78); ALBUMIN 2.7 g/dL (3.4-5.0); ANION GAP 6 mmol/L (5-15); CHLORIDE 118 mmol/L (98-107); CHOLESTEROL, TOTAL 105 mg/dL (140-239)
[2019-10-16 03:54] LABS: ALKALINE PHOSPHATASE 45 U/L (45-117); BILIRUBIN,TOTAL 0.3 mg/dL (0.2-1.0); CALCIUM 7.9 mg/dL (8.5-10.1); CHOL/HDL RATIO 4.8; CREATININE 1.42 mg/dL (0.7-1.3); HDL CHOL % 21 % (26-37); HDL CHOLESTEROL (DIRECT) 22 mg/dL (40-60); LDL CHOLESTEROL,CALCULATED 27 mg/dL (54-169); LDL/HDL RATIO 1.2 (0.5-3.0); TOTAL PROTEIN 5.6 g/dL (6.4-8.2); TRIGLYCERIDES 281 mg/dL (50-200); VLDL CHOLESTEROL 56 mg/dL (0-25)
[2019-10-16 03:57] LABS: MEAN CORPUSCULAR HEMOGLOBIN 26.2 pg (27.5-34.5); MEAN CORPUSCULAR VOLUME 81.9 fL (81-97); MEAN PLATELET VOLUME 7.6 fL (7.4-10.4); PLATELET COUNT 194 x10^3/uL (130-400); RED BLOOD COUNT 2.62 x10^6/uL (4.38-5.82); RED CELL DISTRIBUTION WIDTH 16.9 % (9.4-14.8)
[2019-10-16 04:14] LABS: BASOPHILS # (AUTO) 0.02 x10^3/uL (0-0.1); BASOPHILS % (AUTO) 0 % (0-1); EOSINOPHILS # (AUTO) 0.04 x10^3/uL (0-0.4); EOSINOPHILS % (AUTO) 1 % (1-7); LYMPHOCYTES # (AUTO) 0.86 x10^3/uL (1-3.4); LYMPHOCYTES % (AUTO) 13 % (22-44); MD SCAN; MONOCYTES # (AUTO) 0.54 x10^3/uL (0.2-0.8); MONOCYTES % (AUTO) 8 % (2-9); NEUTROPHILS # (AUTO) 5.22 x10^3/uL (1.8-6.8); NEUTROPHILS % (AUTO) 78 % (42-75)
[2019-10-16] MEDS: PANTOPRAZOLE 80 MG in SODIUM CHLORIDE 0.9% 100 ML IV SCH ×2 (04:22→16:10)
[2019-10-16] MEDS ORDERED: HYDROCHLOROTHIAZIDE 25 MG TABLET PO SCH (09:00)
[2019-10-16] MEDS: CARVEDILOL 25 MG TABLET PO SCH (10:16)
[2019-10-16] MEDS: MULTIVITAMIN 1 TABLET PO SCH (10:17)
[2019-10-16] MEDS: IRON SUCROSE COMPLEX 100MG/5ML IV SCH (10:17)
[2019-10-16] MEDS: ISOSORBIDE DINITRATE 30 MG TABLET PO SCH (10:17)
[2019-10-16] MEDS: ONDANSETRON 2MG/ML, 2ML IVPush PRN ×2 (10:44→16:10)
[2019-10-16 11:42] LABS: TROPONIN I < 0.015 ng/mL (0.000-0.045)
[2019-10-16 18:15] LABS: TROPONIN I < 0.015 ng/mL (0.000-0.045)
[2019-10-16] MEDS: ATORVASTATIN 40 MG TABLET PO SCH ×2 (20:45→21:00)
[2019-10-16] MEDS: CARVEDILOL 12.5 MG TABLET PO SCH (20:46)
[2019-10-17 00:36] VITALS: BP 160/71
[2019-10-17] MEDS: PANTOPRAZOLE 80 MG in SODIUM CHLORIDE 0.9% 100 ML IV SCH ×2 (00:51→11:09)
[2019-10-17 08:00] VITALS: BP 138/66
[2019-10-17] MEDS: MULTIVITAMIN 1 TABLET PO SCH (08:33)
[2019-10-17] MEDS: CARVEDILOL 12.5 MG TABLET PO SCH ×2 (09:54→19:56)
[2019-10-17] MEDS: ISOSORBIDE DINITRATE 30 MG TABLET PO SCH (09:54)
[2019-10-17] MEDS: IRON SUCROSE COMPLEX 100MG/5ML IV SCH (09:54)
[2019-10-17 13:15] VITALS: BP 128/55
[2019-10-17 18:59] VITALS: BP 162/59
[2019-10-17] MEDS: ATORVASTATIN 40 MG TABLET PO SCH (19:56)
[2019-10-17] MEDS: PANTOPROZOLE 40MG TABLET PO SCH (19:56)
[2019-10-17] MEDS: ONDANSETRON 2MG/ML, 2ML IVPush PRN (20:05)
[2019-10-18] VITALS (9 sets, daily range): BP systolic 112–159; BP diastolic 52–68
[2019-10-18] MEDS: ONDANSETRON 2MG/ML, 2ML IVPush PRN (02:42)
[2019-10-18 06:34] LABS: CHLORIDE 113 mmol/L (98-107)
[2019-10-18 06:50] LABS: ALANINE AMINOTRANSFERASE 27 U/L (12-78); ALBUMIN 3.2 g/dL (3.4-5.0); ALKALINE PHOSPHATASE 49 U/L (45-117); ANION GAP 3 mmol/L (5-15); BILIRUBIN,TOTAL 0.5 mg/dL (0.2-1.0); CREATININE 1.38 mg/dL (0.7-1.3); TOTAL PROTEIN 6.3 g/dL (6.4-8.2)
[2019-10-18 08:05] LABS: MEAN CORPUSCULAR HEMOGLOBIN 27.2 pg (27.5-34.5); MEAN CORPUSCULAR HGB CONC 32.2 g/dL (33.2-36.2); MEAN CORPUSCULAR VOLUME 84.5 fL (81-97); MEAN PLATELET VOLUME 7.7 fL (7.4-10.4); PLATELET COUNT 169 x10^3/uL (130-400); RED BLOOD COUNT 2.64 x10^6/uL (4.38-5.82); RED CELL DISTRIBUTION WIDTH 17.4 % (9.4-14.8)
[2019-10-18 08:20] LABS: BASOPHILS # (AUTO) 0.02 x10^3/uL (0-0.1); BASOPHILS % (AUTO) 0 % (0-1); EOSINOPHILS # (AUTO) 0.08 x10^3/uL (0-0.4); EOSINOPHILS % (AUTO) 2 % (1-7); LYMPHOCYTES # (AUTO) 0.75 x10^3/uL (1-3.4); LYMPHOCYTES % (AUTO) 16 % (22-44); MD SCAN; MONOCYTES # (AUTO) 0.45 x10^3/uL (0.2-0.8); MONOCYTES % (AUTO) 9 % (2-9); NEUTROPHILS # (AUTO) 3.51 x10^3/uL (1.8-6.8); NEUTROPHILS % (AUTO) 73 % (42-75)
[2019-10-18] MEDS: IRON SUCROSE COMPLEX 100MG/5ML IV SCH (08:50)
[2019-10-18] MEDS: MULTIVITAMIN 1 TABLET PO SCH (08:51)
[2019-10-18] MEDS: ISOSORBIDE DINITRATE 30 MG TABLET PO SCH (08:51)
[2019-10-18] MEDS: PANTOPROZOLE 40MG TABLET PO SCH ×2 (08:51→20:22)
[2019-10-18] MEDS: CARVEDILOL 12.5 MG TABLET PO SCH ×2 (08:52→20:23)
[2019-10-18] MEDS: ATORVASTATIN 40 MG TABLET PO SCH (20:22)
[2019-10-19 00:17] VITALS: BP 135/65
[2019-10-19 07:54] VITALS: BP 153/66
[2019-10-19] MEDS: MULTIVITAMIN 1 TABLET PO SCH (08:41)
[2019-10-19] MEDS: PANTOPROZOLE 40MG TABLET PO SCH (08:41)
[2019-10-19] MEDS: IRON SUCROSE COMPLEX 100MG/5ML IV SCH (08:41)
[2019-10-19] MEDS: CARVEDILOL 12.5 MG TABLET PO SCH (08:42)
[2019-10-19] MEDS: ISOSORBIDE DINITRATE 30 MG TABLET PO SCH (08:42)
[2019-10-19] MEDS ORDERED: BISACODYL 10 MG SUPP PR PRN (10:00)
[2019-10-19 12:35] VITALS: BP 119/52
[2019-10-19] MEDS ORDERED: PANT40TA5 PO (12:59)
== END 2019-10-19 15:44 | disposition home or self-care (01) | DRG 378 ==
LOC: ED 10:15 → EDIP 10:16 → ED 10:47 → 4EST 14:28 → DCLOUNGE 10-19 15:36
PROVIDERS: ADMIT Internal Medicine; ATTEND Internal Medicine
PROC: 0DJ08ZZ Inspection of Upper Intestinal Tract, Via Natural or Artificial Opening Endoscopic (ICD-10-PCS; 2019-10-15)
PROC: 30233N1 Transfusion of Nonautologous Red Blood Cells into Peripheral Vein, Percutaneous Approach (ICD-10-PCS; principal; 2019-10-16)
DX: K92.2 Gastrointestinal hemorrhage, unspecified (principal); I13.0 Hypertensive heart and chronic kidney disease with heart failure and stage 1 through stage 4 chronic kidney disease, or unspecified chronic kidney disease; I50.22 Chronic systolic (congestive) heart failure; J98.11 Atelectasis; D62 Acute posthemorrhagic anemia; E66.01 Morbid (severe) obesity due to excess calories; E78.5 Hyperlipidemia, unspecified; K27.9 Peptic ulcer, site unspecified, unspecified as acute or chronic, without hemorrhage or perforation; D50.9 Iron deficiency anemia, unspecified; E87.5 Hyperkalemia; I25.5 Ischemic cardiomyopathy; N18.3 Chronic kidney disease, stage 3 (moderate); I25.118 Atherosclerotic heart disease of native coronary artery with other forms of angina pectoris; I44.7 Left bundle-branch block, unspecified; K22.2 Esophageal obstruction; Z79.02 Long term (current) use of antithrombotics/antiplatelets; Z68.37 Body mass index [BMI] 37.0-37.9, adult; I25.2 Old myocardial infarction; Z79.82 Long term (current) use of aspirin; Z95.5 Presence of coronary angioplasty implant and graft
CPT/HCPCS: 36415; 36430; 36600; 71045; 80053; 80061; 82728; 82803; 83036; 83540; 83550; 83735; 83880; 84439; 84443; 84484; 85014; 85018; 85025; 85610; 85730; 86850; 86900; 86923; 93005; 96361; 96365; 99152; 99153; G0378; J1756; J2250; J2405; J3010; Q0162; C9113; J7030; P9016

== ENCOUNTER 2019-10-23 01:44 | Emergency (ER) | payer SELFPAY ==
[~2019-10-23] VITALS: Ht 177.8 cm; Wt 120.0 kg
[~2019-10-23 01:44] MED LIST changes: +ASPI-496 PO; +HYDR25TA6 PO; +PANT40TA5 PO
[2019-10-23] MEDS ORDERED: ONDANSETRON 2MG/ML, 2ML ONE (02:08)
[2019-10-23] MEDS ORDERED: HYDROmorphone 1 MG/ML, 1ML INJ ONE (02:09)
--- NOTE | 2019-10-23 02:15 | NUR ---
Bladder scan indicated >999, per provider insert Mattson cath. Pt medicated per NOV.
[2019-10-23 02:16] LABS: MICROSCOPIC NOT IND
[2019-10-23 02:22] LABS: CULTURE INDICATED? NO
[2019-10-23] MEDS ORDERED: ONDANSETRON 2MG/ML, 2ML IVPush ONE (02:30)
[2019-10-23] MEDS ORDERED: SODIUM CHLORIDE 0.9% 1,000ML IVBOLUS ONE (02:30)
[2019-10-23] MEDS ORDERED: SODIUM CHLORIDE FLUSH 10ML SYR IVF ONE (02:30)
[2019-10-23] MEDS ORDERED: HYDROmorphone 1 MG/ML, 1ML INJ IVPush PRN (02:30)
[2019-10-23] MEDS ORDERED: HYDROmorphone 2 MG/ML, 1ML IVPush PRN (02:30)
--- NOTE | 2019-10-23 02:30 | NUR ---
Mattson placed per order.
[2019-10-23 03:00] LABS: MEAN CORPUSCULAR HEMOGLOBIN 27.9 pg (27.5-34.5); MEAN CORPUSCULAR HGB CONC 32.4 g/dL (33.2-36.2); MEAN CORPUSCULAR VOLUME 86.1 fL (81-97); MEAN PLATELET VOLUME 7.8 fL (7.4-10.4); PLATELET COUNT 239 x10^3/uL (130-400)
[2019-10-23 03:04] LABS: ALANINE AMINOTRANSFERASE 18 U/L (12-78); ALBUMIN 3.2 g/dL (3.4-5.0); ANION GAP 4 mmol/L (5-15); CALCIUM 8.4 mg/dL (8.5-10.1); CHLORIDE 111 mmol/L (98-107); CREATININE 1.54 mg/dL (0.7-1.3)
[2019-10-23 03:08] LABS: ALKALINE PHOSPHATASE 74 U/L (45-117); BILIRUBIN,TOTAL 0.5 mg/dL (0.2-1.0); TOTAL PROTEIN 6.6 g/dL (6.4-8.2); TROPONIN I 0.033 ng/mL (0.000-0.045)
[2019-10-23 03:13] LABS: BASOPHILS # (AUTO) 0.01 x10^3/uL (0-0.1); BASOPHILS % (AUTO) 0 % (0-1); EOSINOPHILS % (AUTO) 2 % (1-7); LYMPHOCYTES % (AUTO) 11 % (22-44); MD MORPH REVIEW ONLY; MONOCYTES # (AUTO) 0.73 x10^3/uL (0.2-0.8); MONOCYTES % (AUTO) 11 % (2-9); NEUTROPHILS # (AUTO) 4.93 x10^3/uL (1.8-6.8); NEUTROPHILS % (AUTO) 76 % (42-75)
[2019-10-23 03:15] LABS: <PLATELET ESTIMATE> ADEQUATE; <PLT MORPHOLOGY> NORMAL PLT MORPH; ANISOCYTOSIS 2+; OVALOCYTES 1+; POLYCHROMASIA 1+
[2019-10-23] MEDS ORDERED: OMNIPAQUE 350 MG/ML, 100ML BOTTLE ONE (03:38)
--- NOTE | 2019-10-23 03:42 | NUR ---
pt resting on gureny, denies needs, monitors in place, call light within reach. awaiting ct result
[2019-10-23 04:56] VITALS: BP 155/71
== END 2019-10-23 05:03 | disposition home or self-care (01) ==
LOC: ED 04:40
DX: K59.00 Constipation, unspecified (principal); R33.9 Retention of urine, unspecified; I10 Essential (primary) hypertension; I25.2 Old myocardial infarction; E78.5 Hyperlipidemia, unspecified
CPT/HCPCS: 36415; 51702; 74177; 80053; 81003; 83690; 84484; 85025; 86850; 86900; 96361; 96374; 96375; 99284; J1170; J2405; J7030; Q9967

== ENCOUNTER 2019-10-23 09:50 | Emergency (ER) | payer SELFPAY ==
[~2019-10-23] VITALS: Ht 177.8 cm; Wt 118.0 kg
[2019-10-23 09:57] VITALS: BP 118/63
--- NOTE | 2019-10-23 10:49 | NUR ---
BARROSO REMOVED. ABOUT 125CC BRIGHT RED URINE IN BAG DRAINED BEFORE REMOVAL. CAT CARE PERFORMED. PT STATED ABD RESOLVED WITH BARROSO REMOVAL. WILL CONTINUE TO MONITOR.
== END 2019-10-23 11:54 | disposition home or self-care (01) ==
LOC: ED 11:40
DX: R33.9 Retention of urine, unspecified (principal); Z46.6 Encounter for fitting and adjustment of urinary device; I10 Essential (primary) hypertension; I25.2 Old myocardial infarction; E78.5 Hyperlipidemia, unspecified
CPT/HCPCS: 99281